=== PATIENT | male | born 1955 | race Two or more races ===

== ENCOUNTER 2016-08-21 09:59 | Emergency (ER) | payer OTHER ==
[~2016-08-21] VITALS: Ht 177.8 cm; Wt 59.0 kg
[2016-08-21] MEDS: Norco 10mg/325mg tab ORAL ONE (10:36)
[2016-08-21] MEDS ORDERED: KEFLEX500 MG ORAL (12:13)
[2016-08-21] MEDS ORDERED: IBUPROFEN600 MG ORAL (12:13)
--- NOTE | 2016-08-21 12:56 | Emergency Room Report ---
History of Present Illness General Chief Complaint: Head Injury Source: Patient Present Illness HPI Patient presents with complaints of fall He reports missing a step and falling down several steps injuring the right side of his face and also top scalp area This happened just prior to arrival patient denies any loss of consciousness He has pain to her right facial area 10 denies any nausea or vomiting denies any neck pain or photophobia Denies any focal weakness Denies any lightheadedness or dizziness prior to the fall Allergies: Coded Allergies: No Known Allergies (Unverified , 08/21/16) Patient History Past Medical History: see triage record Pertinent Family History: none Reviewed Nursing Documentation: PMH: Agreed, PSxH: Agreed Nursing Documentation-PMH Hx Cardiac Problems: No Hx Hypertension: No Hx Asthma: No Hx COPD: No Hx Diabetes: Yes Hx Cancer: No Hx Gastrointestinal Problems: No Hx Dialysis: No History Of Psychiatric Problem: No Hx Neurological Problems: No Hx Cerebrovascular Accident: No Hx Seizures: No Review of Systems All Other Systems: negative except mentioned in HPI Physical Exam Vital Signs Date Time Temp Pulse Resp B/P Pulse Ox O2 Delivery O2 Flow Rate FiO2 08/21/16 09:53 98.2 98 16 156/80 98 Room Air Sp02 EP Interpretation: reviewed, normal General Appearance: well appearing, no apparent distress Head: other - Hematoma right orbital region, large laceration complex Eyes: bilateral eye EOMI, bilateral eye PERRL ENT: hearing grossly normal, normal pharynx, TMs + canals normal, uvula midline Neck: full range of motion, supple, no meningismus, no bony tend Respiratory: lungs clear, normal breath sounds, no rhonchi, no respiratory distress, no retraction, no accessory muscle use Cardiovascular #1: normal peripheral pulses, regular rate, rhythm, no edema, no gallop, no JVD, no murmur Gastrointestinal: normal bowel sounds, non tender, soft, no mass, no organomegaly, non-distended, no guarding, no hernia, no pulsatile mass, no rebound Genitourinary: no CVA tenderness Musculoskeletal: normal inspection Neurologic: oriented x3, responsive, 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 Complex laceration, associated hematoma, 1 cm laceration top parietal region of the scalp Lymphatic: normal inspection, no adenopathy Procedures Laceration/Wound Repair Progress 1)Patient had the right facial area cleansed and irrigated Total of 5 mL 1% lidocaine was used for local sedation A full sterile precautions were used Patient had the area irrigated with high-pressure saline At this time 5 subcutaneous tissues sutures were placed for initial approximation 5.0, fast dissolvinging gut Externally, 8 , 5.0 monofilament sutures placed in an interrupted fashion with good approximation Patient tolerated the procedure well 2) scalp laceration approximately 1 cm Area cleansed and irrigated Total of 3 helen were placed with good approximation Patient tolerated procedure well Medical Decision Making Diagnostic Impression: Primary Impression: Acute head injury Additional Impression: complex facial laceration ER Course Patient presents with a fairly complex facial laceration refer to her report for full specifics CT head was obtained no obvious acute disease There is soft tissue swelling however noticed Patient continues to do well Patient's complex laceration as noted in the specific report Placed on oral antibiotics and requires close followup CT/MRI/US Diagnostic Results CT/MRI/US Diagnostic Results : Impression CT head: Soft tissue swelling no acute disease Last Vital Signs Date Time Temp Pulse Resp B/P Pulse Ox O2 Delivery O2 Flow Rate FiO2 08/21/16 12:44 98.2 08/21/16 09:53 98 16 156/80 98 Room Air Status: improved Disposition: HOME, SELF-CARE Condition: Improved Scripts Ibuprofen* (MOTRIN*) 600 Mg Tablet 600 MG ORAL Q8H Y for For Pain, #30 TAB 0 Refills Prov: MARIA ELENA CARTER D.O. 08/21/16 Cephalexin* (KEFLEX*) 500 Mg Capsule 500 MG ORAL Q6H, #28 CAP 0 Refills Prov: MARIA ELENA CARTER D.O. 08/21/16 Referrals: NOT CHOSEN IPA/,REFERRING (PCP) Patient Instructions: Head Injury, Adult, Facial Laceration, Concussion, Adult , Laceration Care, Adult, [id number], Stitches, Helen, or Adhesive Wound Closure Additional Instructions: Patient is provided with the discharge instructions notified to follow up with primary doctor in the next 2-3 days otherwise return to the er with any worsening symptoms. Please note that this report is being documented using [employer] technology. This can lead to erroneous entry secondary to incorrect interpretation by the dictating instrument. MARIA ELENA CARTER D.O. Aug 21, 2016 12:56
[2016-08-21] MEDS: TdaP Vaccine 0.5ml Syr IM ONE (13:22)
[2016-08-21] MEDS ORDERED: Bacitracin Oint UD TOPIC ONE (13:50)
--- NOTE | 2016-08-21 13:55 | Diagnostic Imaging Report ---
Indication: Headache Technique: Contiguous 5 mm thick transaxial imaging of the head obtained in a Siem[employer] Sensation [address] scanner. Soft tissue and bone windows generated. Total Dose length Product (DLP): [address] Dose Index Volume (CTDIvol): 70.38 mGy Comparison: none Findings: There is mild prominence of the ventricles, basal cisterns, and cerebral sulci consistent with atrophy. Mild, nonspecific, white matter hypoattenuation is noted throughout the brain consistent with chronic small vessel disease. There is no midline shift, edema, acute hemorrhage, mass effect, or abnormal extra-axial fluid collections. Bones and extra osseous soft tissues are unremarkable. Skin helen over the left frontal scalp noted from a laceration injury. There is a small contusion with soft tissue swelling of the scalp in the right supraorbital region. Impression: No acute intracranial bleed, mass effect or edema. Mild atrophy of the brain. Nonspecific white matter hypoattenuation probably due to chronic small vessel disease. Scalp injury as discussed above The CT scanner at [facility] is accredited by the [employer] and the scans are performed using protocols designed to limit radiation exposure to as low as reasonably achievable to attain images of sufficient resolution adequate for diagnostic evaluation.
[2016-08-21 14:30] VITALS: BP 115/75
== END 2016-08-21 14:30 | disposition home or self-care (01) ==
LOC: EDBD 09:59 → EMR 11:15
DX: S01.111A Laceration without foreign body of right eyelid and periocular area, initial encounter (principal); S01.01XA Laceration without foreign body of scalp, initial encounter; W10.9XXA Fall (on) (from) unspecified stairs and steps, initial encounter; Y92.9 Unspecified place or not applicable; Z23 Encounter for immunization; E11.9 Type 2 diabetes mellitus without complications; R51 Headache; G31.9 Degenerative disease of nervous system, unspecified
CPT/HCPCS: 70450; 90471; 90715